=== PATIENT | male | born 1985 | race African-American/Black ===

== ENCOUNTER 2019-02-15 03:55 | Emergency (ER) | payer OTHER ==
[~2019-02-15] VITALS: Ht 177.8 cm; Wt 90.7 kg
--- NOTE | 2019-02-15 04:08 | Emergency Room Report ---
History of Present Illness General Chief Complaint: Substance Abuse Source: Patient Present Illness HPI This is a 33-year-old male brought in by police for medical clearance. He was intoxicated and family called 911. He was agitated and subsequently was arrested. While in the please call he kicked out the police car window. Patient was given Versed in the sleepy when he got here. Now is agitated and screaming. Denies any trauma. Admits to alcohol tonight. No other complaint. Patient History Past Medical History: see triage record, old chart reviewed Past Surgical History: none Pertinent Family History: none Social History: Reports: smoking, alcohol use Immunizations: other Reviewed Nursing Documentation: PMH: Agreed; PSxH: Agreed Nursing Documentation-PMH Past Medical History Deferred: Pt Cognitively Impaired Review of Systems Eye: Denies: eye pain, blurred vision ENT: Denies: ear pain, nose congestion, throat swelling Respiratory: Denies: cough, shortness of breath Cardiovascular: Denies: chest pain, palpitations Gastrointestinal: Denies: abdominal pain, diarrhea, nausea, vomiting Musculoskeletal: Denies: back pain, joint pain Skin: Denies: rash Neurological: Denies: headache, numbness Endocrine: Denies: increased thirst, increased urine Hematologic/Lymphatic: Denies: easy bruising All Other Systems: negative except mentioned in HPI Physical Exam Vital Signs Date Time Temp Pulse Resp B/P (MAP) Pulse Ox O2 Delivery O2 Flow Rate FiO2 02/15/19 03:56 98.1 74 20 140/101 (114) 98 Room Air Sp02 EP Interpretation: reviewed, normal General Appearance: well appearing, no apparent distress, alert Head: normocephalic, atraumatic Eyes: bilateral eye PERRL, bilateral eye EOMI ENT: hearing grossly normal, normal pharynx Neck: full range of motion, supple, no meningismus Respiratory: chest non-tender, lungs clear, normal breath sounds Cardiovascular #1: regular rate, rhythm, no murmur Gastrointestinal: normal bowel sounds, non tender, no mass, no organomegaly, no bruit, non-distended Musculoskeletal: back normal, gait/station normal, normal range of motion Psychiatric: mood/affect normal Medical Decision Making Diagnostic Impression: Primary Impression: Substance abuse Additional Impression: Agitation ER Course Pt with agitation. no trauma to warrant xrays or ct. he is awake. will dc to police. Last Vital Signs Date Time Temp Pulse Resp B/P (MAP) Pulse Ox O2 Delivery O2 Flow Rate FiO2 02/15/19 03:56 98.1 74 20 140/101 (114) 98 Room Air Status: improved Disposition: D/C TO LAW ENFORCEMENT IN [facility] Condition: Stable Patient Instructions: Substance Use Disorder Additional Instructions: Abstain from alcohol and drugs. Follow-up with your doctor in 7 days. Return if worse. Matthew Farooq MD Feb 15, 2019 04:08
[2019-02-15 04:18] VITALS: BP 140/101
--- NOTE | 2019-02-15 04:25 | NUR ---
ER Nurse Note: Pt BIBA 34 d/t aggression and agitation; accompanied with [employer]. Pt is a poor historian, continues to yell inappropriate staetments. Pt is spitting. Per RENATA and ROBERT, pt was given versed on field and was asleep upon arrival. Pt unwilling to answer questions. Pt seen, treated, medically cleared for discharge by ERMD. IV DC; site clean and bandaged. [employer] at pt side and discharged with [employer].
== END 2019-02-15 04:25 ==
LOC: EDBD 03:55 → EMR 04:00
DX: F19.10 Other psychoactive substance abuse, uncomplicated (principal); R45.1 Restlessness and agitation; F17.200 Nicotine dependence, unspecified, uncomplicated
CPT/HCPCS: 99282